=== PATIENT | male | born 1985 | race Caucasian/White ===

== ENCOUNTER 2020-01-02 23:27 | Emergency (ER) | payer MEDICAID, MEDICARE, OTHER ==
[~2020-01-02] VITALS: Ht 195 cm; Wt 79.0 kg
[~2020-01-02 23:27] MED LIST: ATOM60CA3; CLIN-62 PO; CYCL10TA9 PO; DIVA250T2 PO; FLUC200T45 PO; HYDR1TAB PO; IBP800T PO; KETO75CA PO; META800T5 PO; PHEN200T27 PO; PNT40TEC PO; RISP2TAB3 PO; SCR1T1 PO; TRAM50TA2 PO; TRAZ150T42 PO; [UNRECOGNIZED DRUG - OTHER]
[2020-01-02] MEDS ORDERED: LACTATED RINGERS 1,000 ML IV ONE ×2 (23:35→23:37)
--- NOTE | 2020-01-02 23:44 | ED Syncope ---
General Stated Complaint: POSS STROKE Source of Information: Patient Exam Limitations: No Limitations History of Present Illness Date Seen by Provider: Jan 02, 2020 Time Seen by Provider: 23:30 Initial Comments Patient presents to ER by private conveyance with his significant other and chief complaint that since moving here from [facility] month ago he's been doing well until the last 3 days when he started having some chest pain cough lays nausea vomiting and now today fever and chills. MAXIMUM TEMPERATURE 100.2. He received Tylenol about an hour prior to coming in 2 tablets. He had a syncopal episode earlier today and was complaining of left-sided weakness and blurry vision. He's had poor appetite but denies any diarrhea. He's had surgeries on his shoulder and other muscular skeletal surgeries but nothing on his abdomen. He does not follow with a doctor routinely nor does he take any medications nor does he have any known medical history. 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 He's been feeling dizzy throughout the day. He denies a history of diabetes. His significant other who he lives with has had bronchitis for the past couple weeks. Other than the Tylenol he has not taken anything else today. He has had very poor oral fluid intake. He is not having any respiratory complaints. He denies any travel outside the [facility] since 2010. Patient states his vision has been blurry because his contacts are dry. Allergies and Home Medications Allergies Coded Allergies: Codeine (Unverified Allergy, Severe, vomiting/hallucinations, 03/16/09) Penicillins (Unverified Allergy, Mild, 03/12/09) Uncoded Allergies: seafood (Allergy, Intermediate, hives, 03/16/09) Home Medications Divalproex Sodium 250 Mg Tablet.dr, 500 MG PO BID, (Reported) Ketoprofen 75 Mg Capsule, 1 EACH PO TID PRN Prescribed by: FARIDA ALCALA on 07/29/14211 Metaxalone 800 Mg Tablet, 800 MG PO Q6H PRN for SPASMS Prescribed by: FARIDA ALCALA on 07/29/14211 Patient Home Medication List Home Medication List Reviewed: Yes Review of Systems Constitutional: chills, dizziness, fever, malaise, weakness EENTM: No ear discharge, No ear pain Respiratory: No cough, No phlegm, No short of breath Cardiovascular: No chest pain, No edema Gastrointestinal: No abdominal pain, No constipation, No diarrhea; nausea, vomiting Genitourinary: No discharge, No dysuria, No frequency, No hematuria Musculoskeletal: No back pain, No joint pain Skin: No pruritus, No rash Psychiatric/Neurological: Denies Headache, Denies Numbness All Other Systems Reviewed Negative Unless Noted: Yes Past Cgajorv-Ruimoq-Ifsswk Hx Patient Social History Alcohol Use: Occasionally Uses Recreational Drug Use: No Smoking Status: Current Everyday Smoker Immunizations Up To Date Tetanus Booster (TDap): Unknown Seasonal Allergies Seasonal Allergies: No Past Medical History Fractures ADD/ADHD, Bipolar Family Medical History Patient reports no known family medical history. No Pertinent Family Hx Physical Exam Vital Signs Vital Signs - First Documented 01/02/20 23:29 Temp 37.0 Pulse 73 Resp 16 B/P (MAP) 112/73 (86) O2 Delivery Room Air Capillary Refill : Height, Weight, BMI Height: 6'4" Weight: 180lbs. 2.0oz. 81.445478jj; BMI Method:Estimated General Appearance: Mild Distress, Thin HEENT: PERRL/EOMI, TMs Normal, Normal ENT Inspection; No Pharynx Normal (extensive dental caries and mucous membranes are mildly dry), No Moist Mucous Membranes Neck: Full Range of Motion, Normal Inspection Cardiovascular: Regular Rate, Rhythm, Normal Peripheral Pulses Respiratory: Chest Non Tender, Lungs Clear, Normal Breath Sounds, No Accessory Muscle Use, No Respiratory Distress Gastrointestinal: Normal Bowel Sounds, Non Tender, Soft Back: Normal Inspection, No Vertebral Tenderness Extremities: Normal Capillary Refill, Normal Inspection Neurologic/Psychiatric: Alert, Oriented x3, No Motor/Sensory Deficits, Normal Mood/Affect Cranial Nerves: Normal Hearing, Normal Speech, PERRL Coordination/Gait: Other (able to stand and transfer.) Motor/Sensory: No Motor Deficit, No Sensory Deficit Skin: Normal Color, Warm/Dry Progress/Results/Core Measures Results/Orders Lab Results Laboratory Tests Test 01/02/20 23:40 01/02/20 23:53 01/03/20 00:04 01/03/20 01:15 Range/Units White Blood Count 5.7 4.3-11.0 10^3/uL Red Blood Count 4.37 4.35-5.85 10^6/uL Hemoglobin 13.7 13.3-17.7 G/DL Hematocrit 41 40-54 % Mean Corpuscular Volume 93 80-99 FL Mean Corpuscular Hemoglobin 31 25-34 PG Mean Corpuscular Hemoglobin Concent 34 32-36 G/DL Red Cell Distribution Width 11.6 10.0-14.5 % Platelet Count 276 130-400 10^3/uL Mean Platelet Volume 8.9 7.4-10.4 FL Neutrophils (%) (Auto) 57 42-75 % Lymphocytes (%) (Auto) 32 12-44 % Monocytes (%) (Auto) 9 0-12 % Eosinophils (%) (Auto) 2 0-10 % Basophils (%) (Auto) 1 0-10 % Neutrophils # (Auto) 3.3 1.8-7.8 X 10^3 Lymphocytes # (Auto) 1.8 1.0-4.0 X 10^3 Monocytes # (Auto) 0.5 0.0-1.0 X 10^3 Eosinophils # (Auto) 0.1 0.0-0.3 10^3/uL Basophils # (Auto) 0.1 0.0-0.1 10^3/uL Sodium Level 139 135-145 MMOL/L Potassium Level 3.7 3.6-5.0 MMOL/L Chloride Level 102 98-107 MMOL/L Carbon Dioxide Level 26 21-32 MMOL/L Anion Gap 11 5-14 MMOL/L Blood Urea Nitrogen 13 7-18 MG/DL Creatinine 0.96 0.60-1.30 MG/DL Estimat Glomerular Filtration Rate > 60 BUN/Creatinine Ratio 14 Glucose Level 101 70-105 MG/DL Calcium Level 9.6 8.5-10.1 MG/DL Corrected Calcium 9.4 8.5-10.1 MG/DL Magnesium Level 2.0 1.6-2.4 MG/DL Total Bilirubin 0.5 0.1-1.0 MG/DL Aspartate Amino Transf (AST/SGOT) 17 5-34 U/L Alanine Aminotransferase (ALT/SGPT) 11 0-55 U/L Alkaline Phosphatase 60 40-136 U/L Troponin I < 0.028 <0.028 NG/ML B-Type Natriuretic Peptide 10.7 <100.0 PG/ML Total Protein 7.7 6.4-8.2 GM/DL Albumin 4.3 3.2-4.5 GM/DL Lipase 41 8-78 U/L Glucometer 121 H 70-110 MG/DL Blood Gas Puncture Site LT RAD Blood Gas Patient Temperature 37 Arterial Blood pH 7.36 L 7.37-7.43 Arterial Blood Partial Pressure CO2 45 35-45 MMHG Arterial Blood Partial Pressure O2 89 79-93 MMHG Arterial Blood HCO3 25 23-27 MMOL/L Arterial Blood Total CO2 26.2 21.0-31.0 MMOL/L Arterial Blood Oxygen Saturation 97 94-100 % Arterial Blood Base Excess 0.1 -2.5-2.5 MMOL/L Jeffy Test POS Blood Gas Ventilator Setting NO Blood Gas Inspired Oxygen ROOM AIR Urine Color YELLOW Urine Clarity CLEAR Urine pH 6.0 5-9 Urine Specific [place] <=1.005 1.016-1.022 Urine Protein NEGATIVE NEGATIVE Urine Glucose (UA) NEGATIVE NEGATIVE Urine Ketones NEGATIVE NEGATIVE Urine Nitrite NEGATIVE NEGATIVE Urine Bilirubin NEGATIVE NEGATIVE Urine Urobilinogen 0.2 < = 1.0 MG/DL Urine Leukocyte Esterase NEGATIVE NEGATIVE Urine RBC (Auto) NEGATIVE NEGATIVE Urine RBC NONE /HPF Urine WBC NONE /HPF Urine Squamous Epithelial Cells NONE /HPF Urine Crystals NONE /LPF Urine Bacteria NEGATIVE /HPF Urine Casts NONE /LPF Urine Mucus NEGATIVE /LPF Urine Culture Indicated NO Urine Opiates Screen NEGATIVE NEGATIVE Urine Oxycodone Screen NEGATIVE NEGATIVE Urine Methadone Screen NEGATIVE NEGATIVE Urine Propoxyphene Screen NEGATIVE NEGATIVE Urine Barbiturates Screen NEGATIVE NEGATIVE Ur Tricyclic Antidepressants Screen NEGATIVE NEGATIVE Urine Phencyclidine Screen NEGATIVE NEGATIVE Urine Amphetamines Screen NEGATIVE NEGATIVE Urine Methamphetamines Screen NEGATIVE NEGATIVE Urine Benzodiazepines Screen NEGATIVE NEGATIVE Urine Cocaine Screen NEGATIVE NEGATIVE Urine Cannabinoids Screen NEGATIVE NEGATIVE Micro Results Microbiology 01/02/20 Influenza Types A,B Antigen (KIMMY) - Final, Complete My Orders Orders - JAQUELINE SOTO Ed Iv/Invasive Line Start (01/02/20 23:35) Lactated Ringers (Lr 1000 Ml Iv Solution (01/02/20 23:35) Ondansetron Injection (Zofran Injectio (01/02/20 23:45) Cbc With Automated Diff (01/02/20 23:35) Comprehensive Metabolic Panel (01/02/20 23:35) Lipase (01/02/20 23:35) Ua Culture If Indicated (01/02/20 23:35) Drug Screen Stat (Urine) (01/02/20 23:35) Chest 1 View, Ap/Pa Only (01/02/20 23:35) Blood Culture (01/02/20 23:35) Magnesium (01/02/20 23:35) Influenza A And B Antigens (01/02/20 23:35) Ed Iv/Invasive Line Start (01/02/20 23:37) Lactated Ringers (Lr 1000 Ml Iv Solution (01/02/20 23:37) Accucheck Stat ONCE (01/02/20 23:38) Continuous Ekg Monitoring (01/02/20 23:38) Ekg Tracing (01/02/20 23:38) Troponin I (01/02/20 23:38) BNP (01/02/20 23:44) Arterial Blood Gas (01/03/20 00:04) Medications Given in ED Current Medications Medications Dose Ordered Sig/Stevan Route Start Time Stop Time Status Last Admin Dose Admin Lactated Ringer's 1,000 ml @ 0 mls/hr Q0M ONCE IV 01/02/20 23:35 01/02/20 23:39 DC 01/02/20 23:51 999 MLS/HR Lactated Ringer's 1,000 ml @ 0 mls/hr Q0M ONCE IV 01/02/20 23:37 01/02/20 23:39 DC 01/03/20 00:23 999 MLS/HR Ondansetron HCl 4 mg ONCE ONCE IVP 01/02/20 23:45 01/02/20 23:46 DC 01/02/20 23:51 4 MG Vital Signs/I&O 01/02/20 23:29 Temp 37.0 Pulse 73 Resp 16 B/P (MAP) 112/73 (86) O2 Delivery Room Air Progress Progress Note #1: Time: 01:37 Progress Note Patient presents with nonspecific fever, nausea vomiting, syncopal episodes. He is not having any neurologic findings detectable. He has aseptic vital signs however with his history of fever plan to get an influenza swab and initiate a potential septic workup. We'll hold off on the lactate unless he has an elevated white count. Denies any history of coronary disease. Denies any history of dysrhythmias. Plan to look for atypical angina get EKG and troponin as well as BNP to help workup his syncope. Suspect this point however it would be infectious. He has no evidence of meningismus, confusion or delirium. Zofran for his nausea. Lactated Ringer's. Urinalysis and drug screen still pending. Progress Note #2: Time: 02:07 Progress Note Patient has been up walking to the bathroom after receiving some IV fluids. He says he feels little better. He's not had any nausea or vomiting since being here. He's had no fever. He remains aseptic vital signs. I suspect that his syncopal episodes of nausea vomiting may be related to a gastroenteritis. Were encouraging him to drink plenty of fluids use Zofran, Tylenol and ibuprofen. He is not having abdominal pain in his abdominal exam is still benign. Were going to allow him to go home with return precautions. Patient and family are okay with this plan. left, right, both. Initial ECG Impression Date: Jan 03, 2020 Initial ECG Impression Time: 01:25 Initial ECG Rate: 62 Initial ECG Rhythm: Normal Sinus Initial ECG Intervals: Normal Initial ECG Impression: Normal Initial ECG Comparisson: Unchanged Comment Normal sinus rhythm without any ST elevation or depression. Diagnostic Imaging Diagonstic Imaging: Xray Plain Films/CT/US/NM/MRI: chest (1v) Comments 11 ribs seen above the diaphragm possible hyperexpansion but no acute cardiopulmonary processes noted on one view chest x-ray. Reviewed: Reviewed by Me Departure Impression Primary Impression: Viral gastroenteritis Additional Impression: Syncope Qualified Codes: R55 - Syncope and collapse Disposition: 01 HOME, SELF-CARE Condition: Stable Departure-Patient Inst. Decision time for Depature: 02:09 Referrals: [facility] (PCP/Family) Primary Care Physician Patient Instructions: Viral Gastroenteritis, Adult (DC), Syncope (Fainting) (DC ) Add. Discharge Instructions: Drink plenty of fluids over the next couple days. Expect this to resolve in the next week. If it persists beyond that you need to follow-up with a doctor. You need to return to the ER sooner if you experience intractable fever, abdominal pain, vomiting or other worrisome symptom. If you have nausea or vomiting you can take one tablet of ondansetron every 6 hours under the tongue as necessary. Tylenol 1000 mg every 8 hours as needed for pain or fever. Ibuprofen 800 mg every 8 hours as needed for pain or fever. Get plenty of rest over the next couple days. Scripts Ondansetron (Ondansetron Odt) 4 Mg Tab.rapdis 4 MG PO Q6H PRN for NAUSEA/VOMITING, #8 TAB 0 Refills Prov: JAQUELINE SOTO 01/03/20 JAQUELINE SOTO Jan 02, 2020 23:44
[2020-01-02] MEDS ORDERED: ONDANSETRON 4 MG/2 ML (SDV) Z0FRAN IVP ONE (23:45)
[2020-01-02 23:55] LABS: BASOPHILS # (AUTO) 0.1 10^3/uL (0.0-0.1); BASOPHILS % (AUTO) 1 % (0-10); EOSINOPHILS # (AUTO) 0.1 10^3/uL (0.0-0.3); EOSINOPHILS % (AUTO) 2 % (0-10); HEMATOCRIT 41 % (40-54); HEMOGLOBIN 13.7 G/DL (13.3-17.7); LYMPHOCYTES # (AUTO) 1.8 X 10^3 (1.0-4.0); LYMPHOCYTES % (AUTO) 32 % (12-44); MEAN CORPUSCULAR HEMOGLOBIN 31 PG (25-34); MEAN CORPUSCULAR HGB CONC 34 G/DL (32-36); MEAN CORPUSCULAR VOLUME 93 FL (80-99); MEAN PLATELET VOLUME 8.9 FL (7.4-10.4); MONOCYTES # (AUTO) 0.5 X 10^3 (0.0-1.0); MONOCYTES % (AUTO) 9 % (0-12); NEUTROPHILS # (AUTO) 3.3 X 10^3 (1.8-7.8); NEUTROPHILS % (AUTO) 57 % (42-75); PLATELET COUNT 276 10^3/uL (130-400); RED CELL DISTRIBUTION WIDTH 11.6 % (10.0-14.5); WHITE BLOOD COUNT 5.7 10^3/uL (4.3-11.0)
--- NOTE | 2020-01-03 00:04 | NUR ---
G OBTAINED BY MADELAINE, RESPIRATORY THERAPY.
[2020-01-03 00:18] LABS: ABG BASE EXCESS 0.1 MMOL/L (-2.5-2.5); ABG OXYGEN SATURATION 97 % (94-100); ABG PCO2 45 MMHG (35-45); ABG PH 7.36 (7.37-7.43); ABG PO2 89 MMHG (79-93); ABG TCO2 26.2 MMOL/L (21.0-31.0)
[2020-01-03 00:28] LABS: ALANINE AMINOTRANSFERASE 11 U/L (0-55); ALBUMIN 4.3 GM/DL (3.2-4.5); ALKALINE PHOSPHATASE 60 U/L (40-136); BILIRUBIN,TOTAL 0.5 MG/DL (0.1-1.0); BUN/CREATININE RATIO 14; CALCIUM 9.6 MG/DL (8.5-10.1); CARBON DIOXIDE 26 MMOL/L (21-32); CHLORIDE 102 MMOL/L (98-107); CREATININE SERUM 0.96 MG/DL (0.60-1.30); GFR ESTIMATED > 60; GLUCOSE 101 MG/DL (70-105); LIPASE 41 U/L (8-78); POTASSIUM 3.7 MMOL/L (3.6-5.0); SODIUM 139 MMOL/L (135-145); TOTAL PROTEIN 7.7 GM/DL (6.4-8.2)
[2020-01-03 00:31] LABS: ALLENS TEST POS; INSPIRED O2 ROOM AIR; PATIENT TEMP 37; VENTILATOR NO
[2020-01-03 01:24] LABS: BILIRUBIN,URINE NEGATIVE (NEGATIVE); CLARITY,URINE CLEAR; COLOR,URINE YELLOW; GLUCOSE, URINE (UA) NEGATIVE (NEGATIVE); KETONES,URINE NEGATIVE (NEGATIVE); LEUKOCYTE ESTERASE ,URINE NEGATIVE (NEGATIVE); NITRITE,URINE NEGATIVE (NEGATIVE); PROTEIN,URINE NEGATIVE (NEGATIVE)
[2020-01-03 01:42] LABS: BACTERIA,URINE NEGATIVE /HPF
[2020-01-03 01:59] LABS: AMPHETAMINE SCREEN, URINE NEGATIVE (NEGATIVE); BARBITURATE SCREEN URINE NEGATIVE (NEGATIVE); BENZODIAZEPINES SCREEN URINE NEGATIVE (NEGATIVE); CANNABINOID SCREEN, URINE NEGATIVE (NEGATIVE); COCAINE SCREEN URINE NEGATIVE (NEGATIVE); METHADONE STAT NEGATIVE (NEGATIVE); METHAMPHETAMINE SCREEN URINE S NEGATIVE (NEGATIVE); OPIATE SCREEN URINE NEGATIVE (NEGATIVE); OXYCODONE STAT NEGATIVE (NEGATIVE); PROPOXYPHENE STAT NEGATIVE (NEGATIVE); TRICYCLIC ANTIDEPRESSANTS SCRE NEGATIVE (NEGATIVE)
[2020-01-03] MEDS ORDERED: ONDA4TAB11 PO (02:11)
[2020-01-03 02:21] VITALS: BP 100/72
--- NOTE | 2020-01-03 05:00 | Diagnostic Imaging Report ---
Indication: Dizziness Portable chest 11:51 PM Heart size and pulmonary vascularity are normal. Lungs are clear. There are no effusions or pneumothoraces. IMPRESSION: Negative chest Dictated by: Dictated on workstation # [id number]
--- OUTSIDE RECORDS SUMMARY | 2020-01-05 00:52 | XMS REPORT ---
Author Author [employer] Organization [employer] Address [address] [address] Care Team Providers Care Lock Stitch Channeler Name Role Phone [facility] Unavailable [facility] [place] [facility] Unavailable Allergies No Information Medications No Information Problems The data below is from unstructured sourcesNo Known Problems or Medical conditions.No Known Problems or Medical conditions.No Known Problems or Medical conditions. Procedures The data below is from unstructured sourcesNo known history of procedures.No known history of procedures.No known history of procedures. Immunizations The data below is from unstructured sources Name Given Type Tetanus Booster (TDap) Unknown Historical No immunization records. Results The data below is from unstructured sourcesNo Known Relevant Diagnostic Tests, Laboratory Data and/or Discharge Summary. Vital Signs The data below is from unstructured sources Vital Response Date/Time Temperature (Fahrenheit) 99.8 degree s F (97.6 - 99.5) Temperature (Calculated Celsius) 37. 2252 degrees C (36.4 - 37.5) Temperature Source Oral Pulse Rate (adult) 97 bpm (60 - 90) Respiratory Rate 18 bpm (12 - 24) O2 Sat by Pulse Oximetry 99 % (88 - 100) Blood Pressure 123/87 mm Hg Pain Pain Intensity 9 Height (Feet) 6 feet Height (Inches) 4 inches Height (Calculated Centimeters) 193. 659383 cm Weight (Pounds) 180 pounds Weight (Calculated Kilograms) 81.646 627 kilograms Calculated BMI 21.91 Vital Response Date/Time Temperature (Fahrenheit) 99.0 degree s F (97.6 - 99.5) Temperature (Calculated Celsius) 37. 81738 degrees C (36.4 - 37.5) Pulse Rate (adult) 73 bpm (60 - 90) Respiratory Rate 18 bpm (12 - 24) O2 Sat by Pulse Oximetry 98 % (88 - 100) Blood Pressure 119/73 mm Hg Pain Pain Intensity 10 Height (Feet) 6 feet Height (Inches) 5 inches Height (Calculated Centimeters) 195. 469214 cm Weight (Pounds) 200 pounds Weight (Calculated Kilograms) 90.718 475 kilograms Calculated BMI 23.71 Vital Response Date/Time Temperature (Fahrenheit) 99.0 degree s F (97.6 - 99.5) Temperature (Calculated Celsius) 37. 16530 degrees C (36.4 - 37.5) Pulse Rate (adult) 73 bpm (60 - 90) Respiratory Rate 18 bpm (12 - 24) O2 Sat by Pulse Oximetry 98 % (88 - 100) Blood Pressure 119/73 mm Hg Pain Pain Intensity 10 Height (Feet) 6 feet Height (Inches) 5 inches Height (Calculated Centimeters) 195. 286113 cm Weight (Pounds) 200 pounds Weight (Calculated Kilograms) 90.718 475 kilograms Calculated BMI 23.71 Interventions No Information Plan of Treatment The data below is from unstructured sourcesNo plan of care.No plan of care.No plan of care. Goals No Information Social History The data below is from unstructured sources History Response Recorde d Date/Time Hx Family Cancer Y 07/19 4:42pm Hx Family Lung Cancer Y mother 07/19/13 4:42pm Hx Family Stroke Y grandfather-maternal 07/19/13 4:42pm Hx Family Myocardial Infarction Y fa ther, grandmother- maternal, grandfather-paternal 07/19/13 4:42pm History Response Recorde d Date/Time Alcohol Use Denies Use 0 07/19/13 4:41pm Recreational Drug Use N 07/19/13 4:41pm History Response Recorde d Date/Time Alcohol Use Denies Use 0 07/19/13 4:41pm Recreational Drug Use N 07/19/13 4:41pm Functional Status The data below is from unstructured sourcesNo functional status results.No functional status results.No functional status results. Mental Status No Information Encounters No Information Medical Equipment No Information Payers The data below is from unstructured sources Payer Name Policy Number Subscriber Name Relationship [facility] [id number] Gerard Gomez Self / Same As Patient s Medicare [id number] Gerard Gomez Self / Same As Patient Advance Directives Directive Response Recor ded Date Advance Directives N 4:25pm Organ Donor Y 07/19/13 4 :25pm Directive Response Recor ded Date/Time Advance Directives No 12:13am Organ Donor Yes 07/29/14 12:13am Resuscitation Status Full Code 07/29/14 12:13am Directive Response Recor ded Date/Time Advance Directives No 1:51pm Organ Donor Yes 07/03/14 1:51pm Resuscitation Status Full Code 07/03/14 1:51pm Discharge Instructions No hospital discharge instructions.No hospital discharge instructions. Additional Source Comments This clinical document has been generated using [employer] software that has been certified by the Office of the National Coordinator for Health Information Technology (ONC 15.99.04.3023.Diam.31.00.0.215730) and the National Committee for Solutions Specialist (NCQA, as an eMeasure certified technology). FOR RECORDS PERTAINING TO PATIENTS WHO ARE OR HAVE BEEN ENROLLED IN A CHEMICAL D EPENDENCY/SUBSTANCE ABUSE PROGRAM, SOME INFORMATION MAY BE OMITTED. This clinica l summary was aggregated from multiple sources. Caution should be exercised in using it in the provision of clinical care. This summary normalizes information from multiple sources, and as a consequence, information in this document may ma terially change the coding, format and clinical context of patient data. In hernandez tion, data may be omitted in some cases. CLINICAL DECISIONS SHOULD BE BASED ON T HE PRIMARY CLINICAL RECORDS. [employer]. provides no warranty or guara ntee of the accuracy or completeness of information in this document.The followi ng information is based on time limited clinical information
== END 2020-01-03 02:22 | disposition home or self-care (01) ==
LOC: EDUNIT# 23:27 → ER 23:28
DX: A08.4 Viral intestinal infection, unspecified (principal); R55 Syncope and collapse; F31.9 Bipolar disorder, unspecified; F90.9 Attention-deficit hyperactivity disorder, unspecified type; F17.200 Nicotine dependence, unspecified, uncomplicated; Z88.5 Allergy status to narcotic agent; Z88.0 Allergy status to penicillin; Z91.013 Allergy to seafood
CPT/HCPCS: 36415; 71045; 80053; 80306; 81000; 82805; 82962; 83690; 83735; 83880; 84484; 85025; 87040; 87804; 93005